=== PATIENT | female | born 1960 | race Caucasian/White ===

== ENCOUNTER 2019-01-26 00:11 | Emergency (ER) | payer BC ==
[~2019-01-26] VITALS: Ht 157.5 cm; Wt 63.6 kg
[2019-01-26 00:18] VITALS: Ht 157.5 cm; Wt 63.6 kg
[2019-01-26 00:58] LABS: BASOPHILS 0.5 % (0-2); EOSINOPHILS 1.4 % (0-7); HEMATOCRIT 38.4 % (36.0-48.0); HEMOGLOBIN 12.9 g/dL (12-16); IMMATURE GRANULOCYTES 0.4 % (0-5); LYMPHOCYTES 42.5 % (15-50); MCH 31.1 pg (26.0-34.0); MCHC 33.6 g/dL (31.0-37.0); MCV 92.5 fL (80.0-100.0); MEAN PLATELET VOLUME 8.8 fL (7.4-10.4); MONOCYTES 8.7 % (2-11); NEUTROPHILS 46.5 % (40-80); PLATELET COUNT 270 10x3/uL (130-400); RBC 4.15 10x6/uL (4.00-5.40); RDW 13.6 % (11.5-14.5); WBC 7.8 10x3/uL (4.8-10.8)
[2019-01-26 01:10] LABS: ALBUMIN 3.9 g/dL (3.4-5.0); ALKALINE PHOSPHATASE 67 U/L (46-116); ALT (SGPT) 19 U/L (10-68); BILIRUBIN - TOTAL 0.26 mg/dL (0.2-1.3); CALC OSMOLALITY 292 mosm/kg (275-300); CALCIUM 9.1 mg/dL (8.5-10.1); CARBON DIOXIDE 30.5 mmol/L (21.0-32.0); CHLORIDE - SERUM 106 mmol/L (98-107); CREATININE - SERUM 0.8 mg/dL (0.6-1.3); GLUCOSE 83 mg/dL (74-106); POTASSIUM - SERUM 3.6 mmol/L (3.5-5.1); PROTEIN - SERUM 7.2 g/dL (6.4-8.2); SODIUM 146 mmol/L (136-145); UREA NITROGEN 20 mg/dL (7-18); eGFR NON AFRICAN AMERICAN 78 mL/min (90-120)
[2019-01-26] MEDS ORDERED: PREDNISONE20 MG PO (01:34)
[2019-01-26 01:48] VITALS: BP 148/89
== END 2019-01-26 01:48 | disposition home or self-care (01) ==
LOC: D.ER 00:11
PROVIDERS: Family Medicine
DX: T43.215A Adverse effect of selective serotonin and norepinephrine reuptake inhibitors, initial encounter (principal)